=== PATIENT | male | born 1990 | race Caucasian/White ===

== ENCOUNTER 2024-03-12 09:12 | Emergency (ER) | payer BC, SELFPAY ==
[2024-03-12 09:21] VITALS: BP 123/76
--- NOTE | 2024-03-12 10:02 | ED.GENMED ---
History of Present Illness
General
Chief Complaint: Skin Problem
Source: patient
Time Seen by Provider: 03/12/24 09:52
History of Present Illness
History of Present Illness:
33yoM with a history of hyperlipidemia not on medications presenting with his significant other for evaluation of a rash. Patient started to have body aches and malaise 3 days ago. He woke up this morning and noticed a bulls eye rash on his left
posterior shoulder. He currently reports joint pains, subjective fevers, and chills. He denies any known insect or tick bites. He denies any joint swelling.
Phy Exam
General Physical Exam
General Presentation: well appearing and no apparent distress
General age: appears stated age
General Skin: warm and dry
General Habitus: normal
General Mental: alert
ENT Exam
ENT Exam: normocephalic
Pulmonary Exam
Pulmonary Exam: no respiratory distress
Osiris Coma Scale
Eye Opening: Spontaneous
Verbal Response: Oriented
Motor Response: Obeys Commands
GCS Total Score: 15
Skin Exam
Skin Exam: warm/dry and other (Bullseye/target lesion with central clearing noted to L posterior shoulder)
Psychiatric Exam
Psychiatric Exam: normal mood/affect
Course
Orders/Labs/Results
Orders:
Orders
03/12/24 10:25
Lyme Progressive Ur[facility]
03/12/24 10:27
Acetaminophen [Tylenol] 1,000 mg PO NOW STA
Ketorolac [Toradol] 30 mg IM NOW STA
Vital Signs
Initial and Last Documented VS:
Initial Vital Signs
Temp Pulse Resp BP Pulse Ox
100.0 F 96 16 123/76 98
03/12/24 09:21 03/12/24 09:21 03/12/24 09:21 03/12/24 09:21 03/12/24 09:21
Last Documented Vital Signs
Temp Pulse Resp BP Pulse Ox
100.0 F 96 16 123/76 98
03/12/24 09:21 03/12/24 09:21 03/12/24 09:21 03/12/24 09:21 03/12/24 09:21
MDM/Problems Addressed
Differential Diagnosis Includes:
33yoM here with body aches, joint pains x 3 days and a new rash today. He reports subjective fevers at home. Temp is 100.0 here. Remainder of vitals are normal. He is well appearing in no distress. There is a bullseye/target rash to his L shoulder
on exam that appears consistent with erythema migrans. Other differential diagnoses include viral illness and cellulitis
Lyme testing sent. Will start empirically on doxycycline x 10 days for suspected early localized Lyme disease. Supportive care discussed. Advised f/u with PCP and ED return precautions discussed. He expressed understanding and is agreeable to plan.
He was discharged in stable condition.
*Critical Care Note
Total Time (30-74mins, 75-104mins- exclusive of procedures): Not Applicable
ED Attending Note
-
Portions of this chart may have been created with voice recognition software.� Occasional wrong word or��sound alike� substitutions may have occurred due to the inherent limitations of voice recognition software.
Discharge Plan
Departure
Patient Disposition: Home (Routine Discharge)
Date of Disposition: 03/12/24
Time of Disposition: 10:07
Patient with high blood pressure during this ER visit?: No
Discharge Problem:
Erythema migrans (Lyme disease)
Instructions: Lyme Disease (DC), Doxycycline
Prescriptions:
New
doxycycline hyclate 100 mg capsule
100 mg PO BID Qty: 20 0RF
Stand Alone Forms: Return to Work
Activity Restrictions/Additional Instructions:
Take antibiotics as prescribed. Drink plenty of fluids and rest. Take Tylenol and ibuprofen as needed for pain/fevers.
Please call today to schedule a follow-up with your family doctor. Return to the ER with any new or worsening symptoms.
Interventions
Interventions:
*Risk Screen - Suicide Last Done: 03/12/24 09:21
*General Assessment Last Done: 03/12/24 10:05
*Neglect/Abuse Screening Last Done: 03/12/24 09:21
*ED COVID-19 Vaccine History Last Done: 03/12/24 10:05
*Nursing Disposition Last Done: 03/12/24 11:02
ED-Skin Assessment Last Done: 03/12/24 10:03
Discharge Date and Time
Discharge Date/Time: 03/12/24 11:02
Print Language: GRENADIAN
[2024-03-12] MEDS: TORADOL 30 MG IM (10:32)
[2024-03-12] MEDS: TYLENOL 1000 MG PO (10:32)
[2024-03-12 15:14] LABS: Lyme Antibody Screen, EIA Negative (Negative)
== END 2024-03-12 11:02 | disposition home or self-care (01) ==
LOC: EMR 09:12
PROVIDERS: Physician Assistant; EMERGENCY PHYSICIAN Emergency Medicine; FAMILY PHYSICIAN Family Medicine
DX: A69.20 Lyme disease, unspecified (principal); A26.0 Cutaneous erysipeloid; M25.50 Pain in unspecified joint; R50.9 Fever, unspecified; L98.9 Disorder of the skin and subcutaneous tissue, unspecified; R53.81 Other malaise; E78.5 Hyperlipidemia, unspecified
CPT/HCPCS: 99284; 96372; 86618